=== PATIENT | female | born 1945 | race Caucasian/White ===

== ENCOUNTER 2020-05-23 08:49 | Outpatient (CLI) | payer MEDICARE, OTHER ==
--- NOTE | 2020-05-23 09:14 | BD ---
EXAM: Bone densitometry using DEXA HISTORY: 75 yo female. Screening for postmenopausal osteoporosis FINDINGS: L1--bone mineral density 0.912 g/sq cm; T score -0.7 ; Z score 1.4 L2--bone mineral density 0.926 g/sq cm; T score -0.9 ; Z score 1.5 L3--bone mineral density 1.014 g/sq cm; T score -0.6 ; Z score 1.9 L4--bone mineral density 1.063 g/sq cm; T score 0.0 ; Z score 2.6 Total L1-L4--bone mineral density 0.981 g/sq cm; T score -0.6 ; Z score 1.8 Left femoral neck--bone mineral density0.718; T score -1.2 ; Z score 0 point Total proximal left femur--bone mineral density 0.880; T score -0.5 ; Z score 1.3 The 10 year fracture risk for a major osteoporotic fracture is 10% and for a hip fracture is 1.7%. IMPRESSION: Osteopenia
== END 2020-05-23 08:50 | disposition home or self-care (01) ==
LOC: BICMAMMO 08:49
PROVIDERS: ATTEND Nurse Practitioner Family
DX: Z13.820 Encounter for screening for osteoporosis (principal); Z13.828 Encounter for screening for other musculoskeletal disorder; M85.852 Other specified disorders of bone density and structure, left thigh
CPT/HCPCS: 77080